=== PATIENT | female | born 2005 | race Caucasian/White ===

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

== ENCOUNTER → 2023-02-23 12:23 | Outpatient (BNVA) | payer MEDICAID, SELFPAY | PROVIDERS: PCP Family Medicine; Visit Provider Emergency Medicine | DX: Z20.2 Contact with and (suspected) exposure to infections with a predominantly sexual mode of transmission (principal) | CPT/HCPCS: 87491; 87591; 87661 ==

== ENCOUNTER → 2023-03-27 14:40 | Outpatient (BNVA) | payer MEDICAID, SELFPAY | PROVIDERS: PCP Family Medicine; Visit Provider Nurse Practitioner Women's Health | DX: R30.0 Dysuria (principal) | CPT/HCPCS: 81000 ==

== ENCOUNTER 2024-10-05 12:36 | Outpatient (CLI) | payer OTHER, SELFPAY ==
--- NOTE | 2024-10-05 12:45 | US_ITS ---
WS: [id number] ULTRASOUND BREAST BILATERAL TECHNIQUE: Ultrasound bilateral breast focused area of concern. CLINICAL INFORMATION: N64.4 - Mastodynia COMPARISON: None. FINDINGS: RIGHT BREAST: RIGHT breast retroareolar ultrasound. Ultrasound 6 to 9 o'clock position in the area of concern. No underlying cystic or solid lesions. No suspicious abnormalities in the areas of concern. Incidental retroareolar ductal ectasia. LEFT BREAST: Ultrasound subareolar LEFT breast is normal. US/US breast BI limited* [id number] IMPRESSION: BI-RADS 2 benign Recommend annual screening mammography age 40
== END 2024-10-05 12:37 | disposition home or self-care (01) ==
PROVIDERS: Visit Provider Nurse Practitioner Women's Health
DX: N64.4 Mastodynia (principal)
CPT/HCPCS: 76642